=== PATIENT | male | born 1970 | race Two or more races ===

== ENCOUNTER 2018-02-13 00:13 | Emergency (ER) | payer SELFPAY ==
[2018-02-13 01:00] VITALS: BP 85/47
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
== END 2018-02-13 01:55 | disposition home or self-care (01) ==
LOC: ER 00:25
DX: S09.90XA Unspecified injury of head, initial encounter (principal); F10.120 Alcohol abuse with intoxication, uncomplicated; W10.9XXA Fall (on) (from) unspecified stairs and steps, initial encounter
CPT/HCPCS: 99281